=== PATIENT | male | born 1960 | race Caucasian/White ===

== ENCOUNTER 2019-05-05 11:55 | Outpatient (CLI) | payer OTHER, SELFPAY ==
--- NOTE | 2019-05-05 | ECG_ITS ---
Measurements Intervals [place] Rate: 76 P: 45 [place]: 197 QRS: 41 QRSD: 101 T: 31 QT: 373 QTc: 422 Interpretive Statements SINUS RHYTHM WITH MARKED SINUS ARRHYTHMIA INFERIOR INFARCT, AGE INDETERMINATE BASELINE ARTIFACT- II, III ABNORMAL ECG Electronically Signed On 05-05-2019 14:36:08 [employer] MANAGER by Braxton Ford D.O.
== END 2019-05-05 11:56 | disposition home or self-care (01) ==
LOC: ANHIMG 12:00 → ANHCARD 12:05
PROVIDERS: PCP Family Medicine; Visit Provider Family Medicine
DX: Z01.818 Encounter for other preprocedural examination (principal); I10 Essential (primary) hypertension; R94.31 Abnormal electrocardiogram [ECG] [EKG]
CPT/HCPCS: 93005

== ENCOUNTER → 2020-09-05 00:16 | Outpatient (CLI) | payer OTHER, SELFPAY ==
[2020-09-05 21:52] LABS: SARS-CoV-2 RNA PCR Negative
== END ==
PROVIDERS: PCP Family Medicine; Visit Provider Internal Medicine Gastroenterology
DX: Z01.812 Encounter for preprocedural laboratory examination (principal); Z20.822 Contact with and (suspected) exposure to COVID-19
CPT/HCPCS: C9803; U0003; U0005

== ENCOUNTER 2020-09-08 00:50 | Day surgery (SDC) | payer OTHER, SELFPAY ==
[2020-08-30 10:19] VITALS: BMI 30.1
[2020-09-08 07:14] VITALS: BP 173/90; PULSE 79; RESP 16; TEMP 36.5; O2SAT 94; BMI 30.2
[2020-09-08] MEDS: LACTATED RINGERS 1,000 ML 30 ML IV CONT (07:26)
--- NOTE | 2020-09-08 07:27 | WPDGICN ---
GI Consult Note Consult date/time: 09/08/20 07:27 HPI: Reason for visit is colonoscopy. For pleasant gentleman seen in consultation request of the primary physician. Impression: Screening and surveillance colonoscopy. The patient's history adenomatous colon polyps. Psoriasis. Pre diabetes. HLD. HTN. Recommendation: Colonoscopy. History: This very pleasant gentleman is negative GI review of systems. He is here for screening and surveillance colonoscopy. He has a history adenomatous colon polyps. Physical examination: General: very pleasant patient in no acute distress. HEENT: Head was normocephalic sclerae is clear mouth without masses neck was supple. Heart: Rate rhythm regular without S3 or S4. Lungs: CTA. Abdomen: Soft with no guarding or rigidity. Bowel sounds were active. Neurologic: Cranial nerves 2 through 12 intact. No focal defects. No clonus. Musculoskeletal system: Revealed no joint tenderness or swelling no muscle atrophy. Extremities: Reveal no significant edema. Skin: Warm and dry with normal turgor. Mental status: intact. Patient is alert and oriented. Review of Systems Review of Systems: All systems reviewed & are unremarkable except as noted in HPI and below PMFSH Past Medical History Medical History BPH NOS w/o ur obs/LUTS Detached retina Left Dyslipidemia Essential (primary) hypertension History of colon polyps Prediabetes Psoriasis Surgical History Surgical History History of vitrectomy 2019 - multiple surgeries on Left Hx of LASIK (~2005) Family History Family History Father Hypertension Other Family history of malignant neoplasm of breast in first degree relative Social History Social History Smoking packs per day: 1 Smoking cigarettes per day: 20.0 Years smoked: 10 Smoking pack-years: 10.00 Smoking status: Former smoker Tobacco type: cigarettes Second hand tobacco smoke exposure: No Alcohol intake: current Drinks per week: 6 Substance use: never Substance use type: does not use Living arrangements: with family Additional living arrangements comments: Daughter Additional occupation/education comments: [employer] Gender identity (if verbalized by the patient): Male Spiritual care concerns: No Meds Home Medications and Allergies Home Medications Medication Instructions Recorded Confirmed Type atorvastatin 10 mg tablet 10 mg PO DAILY #90 tablet 07/04/20 09/08/20 Rx risankizumab-rzaa 150 mg SUBCUT .[id number] 07/04/20 09/08/20 History lisinopril-hydrochlorothiazide 1 tablet PO DAILY 08/30/20 09/08/20 History tamsulosin 0.4 mg PO DAILY 08/30/20 09/08/20 History Allergies Allergy/AdvReac Type Severity Reaction Status Date / Time No Known Allergies Allergy Verified 09/08/20 07:13 Vital Signs Vital Signs - 24 hr 09/08/20 07:14 Temperature 36.5 C Pulse Rate 79 Respiratory Rate 16 Blood Pressure 173/90 H Pulse Oximetry 94
--- NOTE | 2020-09-08 07:50 | WPDANESEPPF ---
Anes - Initial Pre Proc Eval Procedure: Operation Date: 09/08/20 08:30 Proposed Procedures p Screening Colonoscopy - Nelson Arguello DO Date/Time: 09/08/20 07:50 Surgeon: Nelson Arguello DO Pre Op Diagnosis: neoplasm screening Patient Data Age: 59 Gender: M Height: 5 ft 11 in Weight: 98.1 kg Last Vital Signs Temp 97.7 F 09/08/20 07:14 Pulse 79 09/08/20 07:14 Resp 16 09/08/20 07:14 BP 173/90 H 09/08/20 07:14 Pulse Ox 94 09/08/20 07:14 Allergies Allergy/AdvReac Type Severity Reaction Status Date / Time No Known Allergies Allergy Verified 09/08/20 07:13 Home Medications Medication Instructions Recorded Confirmed Type atorvastatin 10 mg tablet 10 mg PO DAILY #90 tablet 07/04/20 09/08/20 Rx risankizumab-rzaa 150 mg SUBCUT .[id number] ea 07/04/20 09/08/20 History lisinopril-hydrochlorothiazide 1 tablet PO DAILY 08/30/20 09/08/20 History tamsulosin 0.4 mg PO DAILY 08/30/20 09/08/20 History Patient hx anesthesia problems: none Family hx anesthesia problems: none PMFSH Past Medical History Medical History BPH NOS w/o ur obs/LUTS Detached retina Left Dyslipidemia Essential (primary) hypertension History of colon polyps Prediabetes Psoriasis Surgical History Surgical History History of vitrectomy 2020 - multiple surgeries on Left Hx of LASIK (~2005) Family History Family History Father Hypertension Other Family history of malignant neoplasm of breast in first degree relative Social History Social History Smoking packs per day: 1 Smoking cigarettes per day: 20.0 Years smoked: 10 Smoking pack-years: 10.00 Smoking status: Former smoker Tobacco type: cigarettes Second hand tobacco smoke exposure: No Alcohol intake: current Drinks per week: 6 Substance use: never Substance use type: does not use Living arrangements: with family Additional living arrangements comments: Daughter Additional occupation/education comments: [employer] Gender identity (if verbalized by the patient): Male Spiritual care concerns: No Anes - Eval Final PreProcedure Day of Procedure 09/08/20 07:50 Patient weight: obese Heart: regular rate and rhythm Lungs: clear to auscultation Airway: Mallampati scale class II Neurological: alert and oriented Last oral intake: >/= 8 hours ASA classification: III Emergent: no Anesthetic plan: proceed Anesthesia type and monitoring: general GIVS and standard monitoring Informed Consent: The patient's anesthetic plan and its attendant risks and benefits were discussed with the patient/family/POA. Questions were solicited and answers provided to the satisfaction of the patient/family/POA.
[2020-09-08] MEDS: SIMETHICONE ORAL SUSPENSION 20 MG/0.3 ML 30 ML BOTTLE 0.6 ML IRRIGATION (08:17)
[2020-09-08 08:36] VITALS: BP 104/62; PULSE 76; RESP 25; O2SAT 94
[2020-09-08 08:46] VITALS: BP 87/44; PULSE 75; RESP 24; O2SAT 96
[2020-09-08 08:56] VITALS: BP 115/64; PULSE 66; RESP 20; O2SAT 97
== END 2020-09-08 09:04 | disposition home or self-care (01) ==
PROVIDERS: PCP Family Medicine; Visit Provider Internal Medicine Gastroenterology
PROC: 0DJD8ZZ Inspection of Lower Intestinal Tract, Via Natural or Artificial Opening Endoscopic (ICD-10-PCS; CPT 45378; principal; 2020-09-08 08:30)
DX: Z12.11 Encounter for screening for malignant neoplasm of colon (principal); K63.5 Polyp of colon; D12.3 Benign neoplasm of transverse colon; K57.30 Diverticulosis of large intestine without perforation or abscess without bleeding; K64.8 Other hemorrhoids; I10 Essential (primary) hypertension; E78.5 Hyperlipidemia, unspecified; R73.03 Prediabetes; N40.0 Benign prostatic hyperplasia without lower urinary tract symptoms; L40.9 Psoriasis, unspecified; Z87.891 Personal history of nicotine dependence; E66.9 Obesity, unspecified; Z68.30 Body mass index [BMI] 30.0-30.9, adult
CPT/HCPCS: 45380; 45385; 88305; C9803; J2704; J7120; U0003; U0005